=== PATIENT | female | born 1990 | race Caucasian/White ===

== ENCOUNTER 2018-07-08 14:40 | Emergency (ER) | payer MEDICAID ==
[~2018-07-08] VITALS: Ht 157.5 cm; Wt 54.5 kg
[2018-07-08] MEDS ORDERED: buprenorphine/naloxone 8mg/2mg SL tablet SL PRN (15:05)
[2018-07-08 15:55] VITALS: BP 108/66
== END 2018-07-08 15:56 | disposition home or self-care (01) ==
LOC: ER 14:40
DX: F11.23 Opioid dependence with withdrawal (principal); F12.90 Cannabis use, unspecified, uncomplicated
CPT/HCPCS: 99282

== ENCOUNTER 2018-07-23 10:45 | Emergency (ER) | payer MEDICAID ==
[~2018-07-23] VITALS: Ht 157.5 cm; Wt 58.0 kg
[2018-07-23 10:58] VITALS: BP 108/61
== END 2018-07-23 14:58 | disposition left against medical advice (07) ==
LOC: ER 10:46
DX: F11.90 Opioid use, unspecified, uncomplicated (principal); Z76.0 Encounter for issue of repeat prescription; Z53.21 Procedure and treatment not carried out due to patient leaving prior to being seen by health care provider

== ENCOUNTER 2018-09-03 14:51 | Emergency (ER) | payer MEDICAID | END 2018-09-03 15:22 | disposition left against medical advice (07) | LOC: ER 14:52 | DX: N30.90 Cystitis, unspecified without hematuria (principal); Z53.21 Procedure and treatment not carried out due to patient leaving prior to being seen by health care provider ==